=== PATIENT | male | born 1970 | race African-American/Black ===

== ENCOUNTER → 2019-12-16 | Outpatient (CLI) | payer OTHER ==
--- NOTE | 2019-12-16 09:07 | RADIOLOGY REPORT (SQ) ---
EXAM DESCRIPTION: U/S ABDOMEN LIMITED W/O DOP IMAGES COMPLETED DATE/TIME: 12/16/2019 8:52 am REASON FOR STUDY: R10.13 EPIGASTRIC PAIN R10.13 EPIGASTRIC PAIN COMPARISON: None. TECHNIQUE: Dynamic and static grayscale images acquired of the abdomen and recorded on PACS. Additio nal selected color Doppler and spectral images recorded. LIMITATIONS: None. FINDINGS: PANCREAS: No masses. Visualized pancreatic duct normal caliber. LIVER: The liver measures 17.9 cm in length, mild hepatomegaly. LIVER VASCULATURE: Normal directional flow of the main portal vein and hepatic veins. GALLBLADDER: The gallbladder has a contracted appearance. The gallbladder wall measures 1.0 mm, nor mal wall thickness. No pericholecystic fluid. ULTRASOUND-DETECTED JONES'S SIGN: Negative. INTRAHEPATIC DUCTS AND COMMON DUCT: CBD measures 3.0 mm in diameter, normal. The intrahepatic ducts normal caliber. No filling defects. INFERIOR VENA CAVA: Normal flow. AORTA: No aneurysm. RIGHT KIDNEY: The right kidney measures 12.2 x 5.4 x 6.2 cm, normal size. Normal echogenicity. No s olid or suspicious masses. No hydronephrosis. No calcifications. PERITONEAL AND RIGHT PLEURAL SPACE: No ascites or effusions. OTHER: No other significant findings. IMPRESSION: 1. The gallbladder has a contracted appearance. 2. Mild hepatomegaly. TECHNICAL DOCUMENTATION: JOB ID: [id number] [email or web address] Reading location - [email or web address] name: [email or web address]
== END ==
LOC: RAD 08:12
PROVIDERS: ATTEND Internal Medicine Gastroenterology
DX: K82.8 Other specified diseases of gallbladder (principal); R10.13 Epigastric pain; R16.0 Hepatomegaly, not elsewhere classified
CPT/HCPCS: 76705